=== PATIENT | male | born 1970 | race Caucasian/White ===

== ENCOUNTER 2016-11-09 21:54 | Emergency (ER) | payer OTHER ==
[2016-11-09] MEDS: SODIUM CHLORIDE 0.9% FLUSH 10 ML SOL IV PRN ×2 (22:15→22:42)
[2016-11-09 22:18] LABS: BASOPHILS % (AUTO) 1 % (0-3); EOSINOPHILS % (AUTO) 1 % (0-9); HEMATOCRIT 44 % (39-53); MEAN CORPUSCULAR HGB CONC 33.8 gm/dl (32.0-36.0); MONOCYTES % (AUTO) 7.6 % (0-12); NEUTROPHILS % (AUTO) 70.8 % (37-80)
[2016-11-09] MEDS ORDERED: ONDANSETRON HCL 4 MG/2 ML SOL IV ONE (22:20)
[2016-11-09] MEDS ORDERED: HYDROMORPHONE HCL 2 MG/ML 1 ML SOL IV ONE ×2 (22:20→23:08)
[2016-11-09] MEDS ORDERED: SODIUM CHLORIDE 0.9% 1000ML 1,000 ML IV ONE (22:21)
[2016-11-09] MEDS ORDERED: ONDANSETRON HCL 4 MG/2 ML SOL ONE (22:23)
[2016-11-09] MEDS ORDERED: PANTOPRAZOLE SODIUM 40 MG/10 ML PDS IV ONE (22:26)
[2016-11-09] MEDS ORDERED: HYDROMORPHONE HCL 2 MG/ML 1 ML SOL ONE ×2 (22:32→23:07)
[2016-11-09 22:37] LABS: ALBUMIN 3.9 gm/dl (3.4-5.0); CALCIUM 8.9 mg/dl (8.5-10.1); POTASSIUM 3.9 mMol/L (3.5-5.1)
[2016-11-09] MEDS ORDERED: PANTOPRAZOLE SODIUM 40 MG/10 ML PDS ONE (22:41)
[2016-11-09 23:40] LABS: APPEARANCE,URINE Clear; BILIRUBIN,URINE NEGATIVE (NEGATIVE); COLOR,URINE Yellow; GLUCOSE, URINE (UA) NEGATIVE (NEGATIVE); KETONES,URINE NEGATIVE (NEGATIVE); LEUKOCYTE ESTERASE ,URINE NEGATIVE (NEGATIVE); NITRATE,URINE NEGATIVE (NEGATIVE); OCCULT BLOOD,URINE 1+ (NEG-TRACE); UROBILINOGEN,URINE 0.2 (0.2-1.0 EU)
[2016-11-09 23:56] LABS: WBC,URINE 0-1 (0-5AV/HPF)
[2016-11-10] MEDS ORDERED: SODIUM CHLORIDE 0.9% 1000ML 1,000 ML IV ONE (00:17)
[2016-11-10] MEDS ORDERED: ONDANSETRON HCL 4 MG/2 ML SOL IV ONE (00:17)
[2016-11-10] MEDS ORDERED: ONDANSETRON HCL 4 MG/2 ML SOL ONE (00:18)
[2016-11-10 01:27] VITALS: RESP 18; TEMP 98.1
[2016-11-10] MEDS ORDERED: HYDROMORPHONE HCL 2 MG/ML 1 ML SOL IV ONE (01:29)
[2016-11-10] MEDS ORDERED: HYDROMORPHONE HCL 2 MG/ML 1 ML SOL ONE (01:30)
[2016-11-10] MEDS ORDERED: DEXTROSE/SALINE 0.45/KCL 20MEQ 1,000 ML IV ONE ×2 (02:05→02:07)
[2016-11-10] MEDS ORDERED: DEXTROSE/SALINE 0.9% 1,000 ML with POTASSIUM CHLORIDE 2 MEQ/ML 20 MEQ IV SCH (02:15)
[2016-11-10] MEDS ORDERED: NICOTINE 7 MG PATCH ONE (02:21)
[2016-11-10] MEDS ORDERED: NICOTINE 7 MG PATCH TD SCH (02:30)
[2016-11-10 02:54] VITALS: BP 154/85; PULSE 58; O2SAT 92
== END 2016-11-10 03:12 | disposition short-term general hospital (02) ==
LOC: ED 21:54
DX: K56.1 Intussusception (principal)
CPT/HCPCS: 74177; 80053; 81001; 82150; 85025; 99285 ×2; J1170 ×3; J2405 ×2; Q9967; 96365; 96366; 96374; 96375; 99284

== ENCOUNTER 2018-02-25 06:42 | Day surgery (SDC) | payer OTHER ==
[2018-02-25] MEDS ORDERED: PROPOFOL 500 MG/50 ML EMU IV ONE (07:53)
[2018-02-25] MEDS ORDERED: FENTANYL 100MCG/2ML SOL ONE (07:53)
[2018-02-25] MEDS ORDERED: CEFAZOLIN SODIUM 1 GM PDS ONE (07:53)
[2018-02-25] MEDS ORDERED: MIDAZOLAM 2 MG/2 ML SOL ONE (07:53)
[2018-02-25] MEDS ORDERED: LIDOCAINE HCL 2% MPF SOL ONE (07:55)
[2018-02-25] MEDS ORDERED: BUPIVACAINE HCL 0.5% MPF 10 ML SOL ONE (07:55)
[2018-02-25 09:35] VITALS: BP 129/79; PULSE 44; RESP 18; TEMP 96.6; O2SAT 97
== END 2018-02-25 09:59 | disposition home or self-care (01) ==
LOC: SURG 06:42
PROVIDERS: ATTEND Orthopaedic Surgery
DX: L72.0 Epidermal cyst (principal); D23.62 Other benign neoplasm of skin of left upper limb, including shoulder
CPT/HCPCS: J0690; J2250; J3010; A6402; J2704